=== PATIENT | male | born 1945 | race Caucasian/White ===

== ENCOUNTER → 2024-05-15 | Outpatient (CLI) | payer MEDICARE, BC ==
[2024-05-15 11:49] LABS: ALT 11 U/L (4-49); AST 19 U/L (17-59); African American GFR (CKD) 64 (>60 ml/min/1.73 sqM); Anion Gap 10 mmol/L; Blood Urea Nitrogen 22 mg/dL (9-20); C Reactive Protein 2.9 mg/dL (<1.0); Calcium 9.7 mg/dL (8.4-10.2); Carbon Dioxide 22 mmol/L (22-30); Chloride 104 mmol/L (98-107); Creatine Kinase 49 U/L (55-170); Glucose 103 mg/dL (74-99); Non-African American GFR(CKD) 55 (>60 ml/min/1.73 sqM); Potassium 4.4 mmol/L (3.5-5.1); Sodium 136 mmol/L (137-145); Uric Acid 4.5 mg/dL (3.5-8.5)
[2024-05-15 11:53] LABS: T4, Free (Free Thyroxine) 1.13 ng/dL (0.78-2.19)
[2024-05-15 15:30] LABS: HCT 35.9 % (39.6-50.0); HGB 11.3 g/dL (13.0-17.0); MCH 25.5 pg (27.0-32.0); MCHC 31.5 g/dL (32.0-37.0); MCV 80.9 FL (80.0-97.0); Mean Platelet Volume 9.3 FL (9.5-12.2); NRBC Per 100 WBC 0 X 10*3/uL (0.00-0.01); Platelet Count 245 X 10*3/uL (140-440); RBC 4.44 X 10*6/uL (4.40-5.60); RDW 17.3 % (11.5-14.5); WBC 5.43 X 10*3/uL (4.50-10.00)
[2024-05-15 15:56] LABS: BUN/Creat Ratio 15.69 Ratio (12.00-20.00); Rheumatoid Factor, Qnt <15 IU/mL (0-15)
[2024-05-15 16:18] LABS: Basophils # (M) 0 X 10*3/uL (0.00-0.10); Eosinophils # (M) 0.11 X 10*3/uL (0.04-0.35); Lymphocytes # (M) 1.09 X 10*3/uL (0.90-5.00); Monocytes # (M) 0.16 X 10*3/uL (0.20-1.00); Neutrophils # (M) 4.07 X 10*3/uL (1.80-7.70); Neutrophils % (M) 75 %
[2024-05-15 16:22] LABS: Erythrocyte Sedimentation Rate 74 mm/Hr (0-20)
[2024-05-15 21:43] LABS: Cyclic Citrull Pep IgG Unit <1.5 U/mL (<=3.9); Cyclic Citrullinated Pep IgG Negative
[2024-05-16 09:10] LABS: HLA B27 NEGATIVE
== END | disposition home or self-care (01) ==
LOC: LABWHC1 10:31
PROVIDERS: ATTEND Orthopaedic Surgery
DX: M19.031 Primary osteoarthritis, right wrist (principal); M18.0 Bilateral primary osteoarthritis of first carpometacarpal joints; R20.2 Paresthesia of skin; M18.12 Unilateral primary osteoarthritis of first carpometacarpal joint, left hand; M25.532 Pain in left wrist; M19.032 Primary osteoarthritis, left wrist
CPT/HCPCS: 36415; 80048; 82009; 82306; 82550; 83520; 84439; 84443; 84450; 84460; 84550; 85025; 85652; 86038; 86140; 86200; 86431; 86812